=== PATIENT | female | born 1965 | race Two or more races ===

== ENCOUNTER → 2025-02-04 | Outpatient (CLI) | payer MEDICAID, SELFPAY ==
--- NOTE | 2025-02-04 09:31 | XR_ITS ---
Examination: Esophagram standard Upright PA chest single view Upright soft tissue lateral neck single view Fluoroscopy 22 spot fluoroscopic films of the esophagus Exam date and time: February 05, 2020 5:10 AM INDICATIONS: Difficulty swallowing 4 years. FINDINGS: Upright PA chest single view normal heart size lungs are clear Upright soft tissue lateral neck mild disc narrowing C5-C6, C6-C7 Normal epiglottis Patient swallowed thin barium with 22 spot fluoroscopic films of the esophagus fluoroscopy 0.10 minute Prominent esophageal dysmotility Numerous secondary and tertiary esophageal contractions, esophageal spasm Moderate intermittent gastroesophageal reflux with no stricture at the esophageal junction No mucosal ulceration IMPRESSION: Severe esophageal dysmotility Moderate intermittent gastroesophageal reflux
== END | disposition home or self-care (01) ==
PROVIDERS: Referring Provider Physician Assistant Medical; Visit Provider Physician Assistant Medical
DX: K21.9 Gastro-esophageal reflux disease without esophagitis (principal)
CPT/HCPCS: 74220; A4649